=== PATIENT | male | born 1995 | race Caucasian/White ===

== ENCOUNTER 2021-12-18 18:45 | Inpatient (IN) | payer MEDICARE, SELFPAY ==
[2021-12-18 19:02] VITALS: BP 139/93; PULSE 97; RESP 18; TEMP 37.6; O2SAT 99; BMI 20.9
[2021-12-18 19:24] LABS: Appearance Urine CLEAR; Color Urine YELLOW; Glucose Urine UA NEG (NEG); Leukocyte Esterase Urine TRACE (NEG); Nitrite Urine NEG (NEG); UACC Culture Trigger YES; Urine Blood NEG (NEG); Urine Ketones NEG (NEG); Urine Protein NEG (NEG-TRACE)
[2021-12-18 19:38] LABS: Amphetamine Screen Urine POSITIVE (Not Detect); Bacteria Urine TRACE /LPF; Barbiturates, Urine Not Detected (Not Detect); Benzodiazepines Screen Urine Not Detected (Not Detect); Cannabinoid Screen Urine POSITIVE (Not Detect); Cocaine Screen Urine Not Detected (Not Detect); Fentanyl, urine Not Detected (Not Detect); Opiate Screen Urine Not Detected (Not Detect); Phencyclidine Screen Urine Not Detected (Not Detect); RBC Urine 0-2 /HPF (0); WBC Urine 0-2 /HPF (0-4)
[2021-12-18 19:39] LABS: COVID-19 Test Negative (Negative); IDNOW Serial# 55D5AD1C
[2021-12-18 19:41] LABS: MANUAL DIFF FLAG NO
[2021-12-18 19:42] LABS: Basophils Percent Auto 0.2 % (0-2); Eosinophils Percent Auto 0.2 % (0-4); Hematocrit 46.2 % (42.0-52.0); Hemoglobin 14.8 g/dl (14.0-18.0); Imm Gran Abs Auto 0.03 X10*3/uL (0.00-0.03); Imm Gran Pct Auto 0.3 % (0.0-0.4); Lymphocytes Absolute Auto 1.4 X10*3/uL (1.2-4.9); Lymphocytes Percent Auto 12.8 % (20-40); Mean Corpuscular Hemoglobin 28.7 pg (27.0-33.0); Mean Corpuscular Volume 89.5 fL (80.0-98.0); Mean Platelet Volume 9.1 fL (9.4-12.4); Monocytes Percent Auto 9.3 % (2-11); Neutrophils Absolute Auto 8.7 x10*3/uL (2.0-8.3); Neutrophils Percent Auto 77.2 % (45-73); Platelet Count 256 X10*3/uL (160-400); Red Blood Count 5.16 X10*6/uL (4.60-5.80); Red Cell Distribution Width 12.8 % (11.0-16.0); White Blood Count 11.2 X10*3/uL (4.8-10.8)
[2021-12-18 19:57] LABS: Ethanol < 10 mg/dL
[2021-12-18 20:02] LABS: Alanine Aminotransferase 14 U/L (0-40); Albumin Level 4.4 g/dL (3.5-5.0); Alkaline Phosphatase 51 U/L (39-117); Anion Gap 16 (12-20); Aspartate Amino Transferase 24 U/L (5-37); Bilirubin Total 0.4 mg/dL (0.0-1.0); Blood Urea Nitrogen 12 mg/dL (9-16); Calcium 10.6 mg/dL (8.4-10.2); Carbon Dioxide 29 mmol/L (22-29); Chloride 99 mmol/L (96-108); Creatinine Clr Calc Pharmacy 92.8; Estimated Glomerular Filt Rate > 60; Glucose Random 113 mg/dL (60-115); Potassium 4.8 mmol/L (3.3-5.1); Sodium 139 mmol/L (135-145); Total Protein 7.8 g/dL (6.5-8.0)
--- NOTE | 2021-12-18 20:41 | PHA.MEDREC ---
Addendum entered by Dave Johnson ammon 12/19/21 14:50: Patient has medication list provided by CHRIS Menon for [facility] [id number] Resume. Patient is on DR ROBERT AT BEDTIME, AND ER DEPAKOTE DAILY IN THE AM. PATIENT TAKES RISPERIDONE BID Original Note: Pharmacy Consult ? Medication Reconciliation Pharmacy has not completed the medication reconciliation. Patient has no external pharmacy fill history or pharmacy listed. I spoke with the patient down in the psych ed who was manic and he stated that he takes adderall and klonopin. I asked what pharmacy he fills [facility] and [facility] I checked the patients [facility] or [facility] and he has no fill history for any controlled substances. The patient was not able to tell me the doses or directions on either medication. At this time I put the med rec as unobtainable.
[2021-12-18] MEDS: clonazePAM 0.5 MG TABLET PO (20:51)
[2021-12-18] MEDS: OLANZapine 5 MG TABLET PO (22:26)
--- NOTE | 2021-12-19 02:14 | ED.PSYCH ---
HPI - Psych General Chief Complaint: Psychiatric Symptoms Stated Complaint: mental break Time Seen by Provider: 12/18/21 18:52 Source: patient Mode of arrival: EMS Limitations: other (Patient appears to be manic) History of Present Illness HPI Narrative: This is a 26-year-old male medical history of bipolar disorder, schizophrenia presenting to the emergency department appearing to be manic. Patient tells me he has not been taking his medications for the past 48 hours. He tells me that he is forgetting to take it. He is not answering questions appropriately, he is inappropriately laughing or screaming out for help. He is to screaming help me ?. No evidence signs of trauma. Denies SI and HI. Denies medical complaints at this time. He is also screaming ?my medicine ?. Relieving factors: none Exacerbating factors: none Associated psychiatric symptoms: none Associated symptoms: denies other symptoms Treatments prior to arrival: none Related Data Home Medications Medication Instructions Recorded Confirmed Unobtainable 12/18/21 12/18/21 Allergies Allergy/AdvReac Type Severity Reaction Status Date / Time No Known Allergies Allergy Verified 12/18/21 19:33 Review of Systems Review of Systems: Yes Unobtainable due to mental status PMFSH Past Medical History Attestation statement: The following information was validated with the patient. Source: old records reviewed and nursing notes reviewed Social History Social History Advance Directives: No Advance Directives Information Provided: No Physical Exam Vital Signs: Vital Signs: Last Vital Signs Temp 99.7 F 12/18/21 19:02 Pulse 97 12/18/21 19:02 Resp 18 12/18/21 19:02 BP 139/93 H 12/18/21 19:02 Pulse Ox 99 12/18/21 19:02 BMI result Body Mass Index 20.9 Vital signs stable Appearance: Alert.? Oriented X3.? No acute distress.? Head: Normocephalic, atraumatic, no step-offs or deformities Eyes: Pupils equal, round and reactive to light.? ENT: Pharynx normal.? Neck: Normal inspection.? Neck supple.? CVS: Normal heart rate and rhythm.? Pulses normal.? Respiratory: No respiratory distress.? Breath sounds normal.? Abdomen: Soft and nontender.? Skin: Skin warm and dry.? Normal skin color.? Normal skin turgor.? Extremities: No lower extremity edema.? No calf ttp. 5/5 strength to bilateral upper and lower extremities Back: No midline tenderness, no C-spine tenderness, full range of motion, no CVA tenderness bilaterally Neuro: Oriented X 3.? No motor deficit.? No sensory deficit. CN 2-12 intact Course Reevaluation(s) Reevaluation #1: Patient noted to have a slight leukocytosis however not complaining of any medical complaints denies recent URI, likely reactive. Chemistry with no acute electrolyte abnormalities requiring intervention. Urine with trace leukocyte esterases however no urinary symptoms. Will not treat for UTI. Urine positive for amphetamines and marijuana. Ethanol negative. COVID negative. At this time patient will be placed in physician observation to allow more time to be evaluated by the behavioral health team. At time observation was started patient common cooperative no acute distress. Time: 02:19 MDM - Psych MDM Narrative Medical decision making narrative: 0000 26 yo m presents with non med compliance. History of bipolar and schizophrenia. Appears to be manic. Poor historian. Physical exam benign. RRR. Lungs clear. Abdomen soft non tender non distended. Plan medical clearance Medical Records Attestation: I reviewed the patient's medical records. Lab Data Attestation: I reviewed the patient's lab results. Result diagrams: 12/18/21 19:35 12/18/21 19:35 Labs: Lab Results 12/18/21 12/18/21 12/18/21 Range/Units 19:10 19:10 19:11 WBC (4.8-10.8) X10*3/uL RBC (4.60-5.80) X10*6/uL Hgb (14.0-18.0) g/dl Hct (42.0-52.0) % MCV (80.0-98.0) fL MCH (27.0-33.0) pg MCHC (31.0-36.0) g/dl RDW (11.0-16.0) % Plt Count (160-400) X10*3/uL MPV (9.4-12.4) fL Immature Gran % (Auto) (0.0-0.4) % Neut % (Auto) (45-73) % Lymph % (Auto) (20-40) % [place] % (Auto) (2-11) % Eos % (Auto) (0-4) % Baso % (Auto) (0-2) % Lymph # (Auto) (1.2-4.9) X10*3/uL [place] # (Auto) (0.1-1.2) X10*3/uL Eos # (Auto) (0.0-0.4) X10*3/uL Baso # (Auto) (0.0-0.2) X10*3/uL Abs Immat Gran (auto) (0.00-0.03) X10*3/uL Absolute Neuts (auto) (2.0-8.3) x10*3/uL Absolute Nucleated RBC (0.0-0.012) X10*3/uL Nucleated RBC % (auto) (0.0-0.2) /100WBC Sodium (135-145) mmol/L Potassium (3.3-5.1) mmol/L Chloride (96-108) mmol/L Carbon Dioxide (22-29) mmol/L Anion Gap (12-20) BUN (9-16) mg/dL Creatinine (0.5-1.4) mg/dL Estim Creat Clear Calc Estimated GFR Random Glucose (60-115) mg/dL Calcium (8.4-10.2) mg/dL Total Bilirubin (0.0-1.0) mg/dL AST (5-37) U/L ALT (0-40) U/L Alkaline Phosphatase (39-117) U/L Total Protein (6.5-8.0) g/dL Albumin (3.5-5.0) g/dL Urine Color YELLOW Urine Appearance CLEAR Urine pH 6.0 (5.0-8.0) Ur Specific [place] 1.020 (1.005-1.025) Urine Protein NEG (NEG-TRACE) MG/DL Urine Glucose (UA) NEG (NEG) MG/DL Urine Ketones NEG (NEG) MG/DL Urine Blood NEG (NEG) Urine Nitrite NEG (NEG) Ur Leukocyte Esterase TRACE H (NEG) Urine RBC 0-2 (0) /HPF Urine WBC 0-2 (0-4) /HPF Ur Squamous Epith Cells NONE /LPF Urine Bacteria TRACE /LPF Urine Opiates Screen Not Detected (Not Detect) Urine Fentanyl Screen Not Detected (Not Detect) Ur Barbiturates Screen Not Detected (Not Detect) Ur Phencyclidine Scrn Not Detected (Not Detect) Ur Amphetamines Screen POSITIVE H (Not Detect) U Benzodiazepines Scrn Not Detected (Not Detect) Urine Cocaine Screen Not Detected (Not Detect) U Marijuana (THC) Screen POSITIVE H (Not Detect) Ethyl Alcohol mg/dL COVID-19 (MARLON) Negative (Negative) COVID-19 Clin Com See Note 12/18/21 12/18/21 12/18/21 Range/Units 19:35 19:35 19:35 WBC 11.2 H (4.8-10.8) X10*3/uL RBC 5.16 (4.60-5.80) X10*6/uL Hgb 14.8 (14.0-18.0) g/dl Hct 46.2 (42.0-52.0) % MCV 89.5 (80.0-98.0) fL MCH 28.7 (27.0-33.0) pg MCHC 32.0 (31.0-36.0) g/dl RDW 12.8 (11.0-16.0) % Plt Count 256 (160-400) X10*3/uL MPV 9.1 L (9.4-12.4) fL Immature Gran % (Auto) 0.3 (0.0-0.4) % Neut % (Auto) 77.2 H (45-73) % Lymph % (Auto) 12.8 L (20-40) % [place] % (Auto) 9.3 (2-11) % Eos % (Auto) 0.2 (0-4) % Baso % (Auto) 0.2 (0-2) % Lymph # (Auto) 1.4 (1.2-4.9) X10*3/uL [place] # (Auto) 1.0 (0.1-1.2) X10*3/uL Eos # (Auto) 0.0 (0.0-0.4) X10*3/uL Baso # (Auto) 0.0 (0.0-0.2) X10*3/uL Abs Immat Gran (auto) 0.03 (0.00-0.03) X10*3/uL Absolute Neuts (auto) 8.7 H (2.0-8.3) x10*3/uL Absolute Nucleated RBC 0.000 (0.0-0.012) X10*3/uL Nucleated RBC % (auto) 0.0 (0.0-0.2) /100WBC Sodium 139 (135-145) mmol/L Potassium 4.8 (3.3-5.1) mmol/L Chloride 99 (96-108) mmol/L Carbon Dioxide 29 (22-29) mmol/L Anion Gap 16 (12-20) BUN 12 (9-16) mg/dL Creatinine 1.15 (0.5-1.4) mg/dL Estim Creat Clear Calc 92.8 Estimated GFR > 60 Random Glucose 113 (60-115) mg/dL Calcium 10.6 H (8.4-10.2) mg/dL Total Bilirubin 0.4 (0.0-1.0) mg/dL AST 24 (5-37) U/L ALT 14 (0-40) U/L Alkaline Phosphatase 51 (39-117) U/L Total Protein 7.8 (6.5-8.0) g/dL Albumin 4.4 (3.5-5.0) g/dL Urine Color Urine Appearance Urine pH (5.0-8.0) Ur Specific [place] (1.005-1.025) Urine Protein (NEG-TRACE) MG/DL Urine Glucose (UA) (NEG) MG/DL Urine Ketones (NEG) MG/DL Urine Blood (NEG) Urine Nitrite (NEG) Ur Leukocyte Esterase (NEG) Urine RBC (0) /HPF Urine WBC (0-4) /HPF Ur Squamous Epith Cells /LPF Urine Bacteria /LPF Urine Opiates Screen (Not Detect) Urine Fentanyl Screen (Not Detect) Ur Barbiturates Screen (Not Detect) Ur Phencyclidine Scrn (Not Detect) Ur Amphetamines Screen (Not Detect) U Benzodiazepines Scrn (Not Detect) Urine Cocaine Screen (Not Detect) U Marijuana (THC) Screen (Not Detect) Ethyl Alcohol < 10 mg/dL COVID-19 (MARLON) (Negative) COVID-19 Clin Com Critical Care Time Critical Care Time Critical Care Time: No Discharge Plan Discharge Clinical Impression: Bipolar disorder Patient Disposition: Still a Patient Prescriptions: No Action Unobtainable 0RF
[2021-12-19] MEDS: OLANZapine 5 MG TABLET PO ×2 (07:17→19:41)
[2021-12-19] MEDS: cefTRIAXone sodium 500 MG, Lidocaine HCl 1 % MPF 1 ML IM (09:58)
[2021-12-19] MEDS: Nicotine 21 MG PATCH.TD24 TRANSDERMA (11:03)
[2021-12-19] MEDS: LORazepam 1 MG TABLET 2 MG PO ×2 (11:05→19:41)
--- NOTE | 2021-12-19 11:16 | MHC.CARE ---
CARE team met with pt for a brief risk assessment to determine if pt required full crisis assessment. Per POD pt was asking to dc unless given medications requested however these medications (klonopin, adderall) cannot be verified. Pt reported his pharmacy is located in [place] and providers are there also. T/w attempted to meet with pt who was sleeping and did not wake when t/w used his name. POD nurse was able to help wake pt and reported he had recently had an injection of zyprexa. Pt sat up to speak w t/w and presented initially tired and once engaged in questions; pt became irritable and disorganized. Pts voice became louder and he would not make eye contact while yelling I am not an experiment...I want the meds I said work for me or I leave . Pt stated he came here on his own meaning he sought help willingly when ED records indicated he arrived via the police for bizarre behavior in the community. When asked about this pt denied this to be true and with escalating irritation stated that is because god was talking to me. He chose me I cannot help it and I like it . Pt again demanded to be given klonopin and adderall and states he will just leave . Pt would no longer engage with t/w and was escalating. Pt stated he wanted something for anxiety. He began pacing in the room wrapped in a blanket and then waited in lester. T/w spoke w ED provider Vy and it was agreed pt was presenting with significant impairment and needed a full assessment wither by N or CARE team. Added med ordered for anxiety to help pt calm down for further assessment. He reported to her this am that he drank bleach in order to cleanse himself and when offered meds for possible infection he was reluctant to take due to how it impacts his mind and how he liked the burning feeling when urinating. Pt will remain in the ED on a section 12a for crisis assessment. Joan called and smartsheet received by [facility], awaiting a call back from Trudy for ETA for Joan. PA in agreement with plan to have pt remain for further full eval based on his current behavior and presenting sxs.
[2021-12-19 12:21] LABS: CT PCR NOT DETECTED (Not Detect.); NG PCR NOT DETECTED (Not Detect.)
--- NOTE | 2021-12-19 13:45 | PC.NURSE ---
Pt assessed by gil originally from [place]. only support system in [place] is children's mother Viv [phone]
--- NOTE | 2021-12-19 19:10 | PC.NURSE ---
Took report from Nichol to assume care of Pt, Pt in community area talking with other patients, Pt calm/cooperative at this time, safety maintained, this RN continues to monitor.
--- NOTE | 2021-12-19 20:40 | PC.NURSE ---
Pt medicated with bedtime meds, Pt refused Depakote, Pt given Ativan without incident, Pt calm at this time, safety maintained, this RN continues to monitor.
--- NOTE | 2021-12-19 23:20 | PC.NURSE ---
Pt sleeping, chest rise and fall observed, safety maintained, this RN continues to monitor.
--- NOTE | 2021-12-20 00:35 | PC.NURSE ---
Pt asking when he will be able to go home, Pt redirected and Pt went back to his room. Safety maintained, this RN continues to monitor.
--- NOTE | 2021-12-20 04:46 | PC.NURSE ---
Pt sleeping, chest rise and fall observed, safety maintained, this RN continues to monitor.
--- NOTE | 2021-12-20 06:20 | PC.NURSE ---
Pt asking to speak to , hot metal charger spoke with Pt, Pt calm/cooperative, safety maintained, this RN continues to monitor.
--- NOTE | 2021-12-20 06:37 | PC.NURSE ---
Pt watching tv, Pt calm/cooperative at this time, safety maintained, this RN continues to monitor.
--- NOTE | 2021-12-20 07:25 | PC.NURSE ---
pt irritable that he is not able to his Adderall. explained what he has for meds. pt reports If I dont get my adderall Riya go home I don't care
[2021-12-20] MEDS: OLANZapine 5 MG TABLET PO (07:35)
[2021-12-20] MEDS: LORazepam 1 MG TABLET 2 MG PO (07:35)
[2021-12-20] MEDS: Nicotine 21 MG PATCH.TD24 TRANSDERMA (07:42)
[2021-12-20] MEDS: Divalproex Sodium ER 500 MG TAB.ER.24H PO (08:19)
[2021-12-20] MEDS: risperiDONE 2 MG TABLET PO ×2 (08:19→20:45)
[2021-12-20 10:07] VITALS: BP 121/52; PULSE 67; RESP 18; TEMP 36.9; O2SAT 98
[2021-12-20] MEDS: LORazepam 1 MG TABLET PO (10:13)
--- NOTE | 2021-12-20 11:57 | PC.NURSE ---
pt with verbal altercation with staff regarding staff asking him not to place his hands on other pts. security called for presence and pt deescalated. pt continues to ask to speak with dr regarding his care and when he can get out of here . ALYCE Thompson at bedside this morning, spoke with pt about why we cannot continue his Adderall and Klonopin (he was buying them from the street), and explained the section 12 process.
--- NOTE | 2021-12-20 12:51 | PC.NURSE ---
pt holding up hand written signs to the camera and stated its for the camera . unclear what sign stated.
--- NOTE | 2021-12-20 13:08 | PC.NURSE ---
pt forgetful, continues to perseverate about the same topics and have to be reminded of conversations already had. each time pt irritable and requires verbal deescalation.
--- NOTE | 2021-12-20 14:13 | PC.NURSE ---
pt reports he has a problem with a tooth on his right side and he is supposed to have a dentist appointment tomorrow that he cannot miss it .
--- NOTE | 2021-12-20 14:32 | PC.NURSE ---
pt irritable, again, regarding plan, not recalling earlier conversations. pt wanting to leave. reports he is not going to take any more medications. stated I'm a smart man, I need to run, I know how to get out of here . pt proceeded to tap the door frame with his fist. offered pt PO medication, pt reported all you want to do is push meds . informed pt it is his right to refuse medication if he wants to. pt reported So I don't take meds I can go then . t/w re-informed pt that [facility] will be by to evaluate him later today.
[2021-12-20 15:54] VITALS: BP 133/85; PULSE 97; RESP 19; TEMP 37.7; O2SAT 98
--- NOTE | 2021-12-20 16:08 | PC.NURSE ---
call placed to [facility] to determine when a staff member will be around to assess the pt. informed t/w that someone will be heading out shortly and should be here within the hour.
--- NOTE | 2021-12-20 16:54 | PC.NURSE ---
[facility] at bedside
[2021-12-20] MEDS: Divalproex Sodium 250 MG TABLET.DR 750 MG PO (20:45)
--- NOTE | 2021-12-21 | ECG_ITS ---
Test Reason : mEDICAL CLEARANCE Blood Pressure : / mmHG Vent. Rate : 091 BPM Atrial Rate : 091 BPM P-R Int : 154 ms QRS Dur : 084 ms QT Int : 350 ms P-R-T Axes : 076 082 061 degrees QTc Int : 430 ms Normal sinus rhythm Normal ECG No previous ECGs available Referred By: Catherine Deleon Electronically Signed By:NANY JONES MD
[2021-12-21 04:38] VITALS: BP 116/73; PULSE 80; RESP 16; TEMP 36.6; O2SAT 100
--- NOTE | 2021-12-21 06:33 | PC.NURSE ---
pt wrote a note and is posted in pt chart about the reason he came to for medications [place]. pt looking for adderall 50 mg tid, clonopin hs, tramodol bid. pt notes states he wants to go back into the main ed for his medications.
--- NOTE | 2021-12-21 07:38 | PC.NURSE ---
patient appears to remain asleep at present respirations are even and unlabored patient appears in no distress
[2021-12-21] MEDS: LORazepam 1 MG TABLET 2 MG PO ×4 (07:47→19:04)
[2021-12-21] MEDS: OLANZapine 5 MG TABLET PO ×2 (07:47→12:38)
--- NOTE | 2021-12-21 09:39 | PC.NURSE ---
patient disrespectful to staff once limits set rtegarding him using phone after him telling staff he was getting a phone number, pacing unit calling people whores and talking about staffs mothers. now talking loudly and saying he wants to fuck everybody redirected to room and client declined
--- NOTE | 2021-12-21 09:49 | PC.NURSE ---
client eloped from pod when opportunity arose of staff using door
[2021-12-21] MEDS: OLANZapine ODT 10 MG TAB.RAPDIS 5 MG TRANSLINGU (10:21)
[2021-12-21 10:47] LABS: COVID-19 Test Negative (Negative); IDNOW Serial# 16C4AD1C
[2021-12-21 18:00] VITALS: BP 124/81; BP 129/81; PULSE 90; RESP 18; TEMP 36.6; O2SAT 97
[2021-12-21 18:31] VITALS: BP 116/73; PULSE 80; RESP 16; TEMP 36.6; O2SAT 100
[2021-12-21] MEDS: traZODone HCL 50 MG TABLET PO (19:05)
--- NOTE | 2021-12-21 23:14 | PC.ADMIT ---
Pt admitted to at 16:35. Initially was cooperative with admission process. Pt was allowed to call girlfriend. Following the phone call, he became very angry and agitated. He was initially demanding to be discharged. CV and 3 day notice explained to him. Patient signed 3 day notice and was able to calm down and cooperate with the remainder of the admission. Took meds for sleep and anxiety early and went to bed [ End ]
[2021-12-22 06:00] VITALS: BP 124/76; PULSE 102; RESP 16; TEMP 36.8; O2SAT 99
[2021-12-22] MEDS: risperiDONE 2 MG TABLET PO ×2 (09:03→20:44)
[2021-12-22 09:08] LABS: Estimated Average Glucose 100 mg/dL; Hemoglobin A1C 150.7972 umol/L; Hemoglobin A1c % 5.1 %
[2021-12-22 09:32] LABS: Cholesterol 127 mg/dL; HDL Cholesterol 45 mg/dL; LDL Cholesterol Calculated 72 mg/dl; Triglycerides 52 mg/dL
[2021-12-22 09:50] LABS: Free T4 (Free Thyroxine) 0.91 ng/dL (0.71-1.85); Thyroid Stimulating Hormone 1.15 uIU/mL (0.32-4.0)
[2021-12-22 10:06] LABS: Vitamin B12 1104 pg/mL (200-900)
[2021-12-22] MEDS: traMADoL HCL 50 MG TABLET 25 MG PO ×2 (13:43→20:43)
[2021-12-22] MEDS: Nicotine 21 MG PATCH.TD24 TRANSDERMA (13:44)
--- NOTE | 2021-12-22 15:39 | P.HPPS_ITS ---
HPI Date of Service: 12/22/21 Chief Complaint: schizoaffective discorder, bipolar type Sources of Information: patient interviewed, chart reviewed and crisis/core team assessment reviewed HPI Subjective Notes: Garcia Warning and Conditional Voluntary Healthcare Proxy: No Guardianship: No Medical Problems Affecting Mental Status: No Narrative: Danyel is a 26 y.o. Male who carries a dx of schizoaffective do, bipolar type. He presented to [facility] on 12/19/21 via section 12, had been found wandering in [place]. He appeared manic, screaming ?help me,? and ?my medicine.? He also reported having penile drainage, burning sensation, given doxycycline in ED setting for STD prophylaxis. Pt stated he has been drinking bleach ?to clean his system.? He reported non-adherence to medications x 48 hours, was on depakote and risperdal, says he forgets to take them. He was recently hospitalized a week ago in [place]. Pt reported he was getting Adderall prescribed in [place] and requested a refill. Utox positive for amphetamines and cannabis. [employer] does not show hx of amphetamine scripts. While in the ED setting, pt eloped multiple times and had to be brought back into the emergency department. Per [facility] crisis eval, pt presented as religiously preoccupied.??? I evaluated the pt this evening and upon interview he reports he has ?too much energy, wants to win the world.? Pt said he was drinking bleach but was diluting it in water, putting in 5 drops in a bottle of water, now says ?everything feels clean,? ?now its perfect.? Denies hyposomnia, says his sleep is ?perfect.? Pt is tangential, racing thoughts. He is grandiose, talking about winning basketball games. Endorses AH, hears a ?good voice,? says ?whatever he says to me is perfect,? says the voice is god. Also says he sometimes hears a voice telling him ?you need to speak with ?trump,? ?biden,? ?the controls,? and ?you got something to do.? Denies depression. Says anxiety is ?too much.? Denies SI/SIB. Pt requests klonopin and Adderall, says ?I love adderall.? Says he doesnt like taking depakote because he feels ?too numb.?? Past Psychiatric History: -Hx of multiple psych hospital admissions. He reports hx of IPLOC in [place] and [place] -Pt reports hx of suicide attempt by overdosing on medication, was hospitalized in [place] Medical Evaluation Reviewed: Yes [facility] Social History: -Pt has been visiting and staying with his ex and his daughter (age 7) and lives in [place]. 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 Substance History: -Utox positive for amphetamines, cannabis -Says ?If I can use drugs i use them,? Janette, cocaine, pills. Denies alcohol abuse. Diagnostics Vital Signs (24Hr): Vital Signs - 24 hr 12/21/21 18:00 12/21/21 18:31 12/22/21 06:00 Temperature 98 F 97.9 F 98.2 F Pulse Rate 90 80 102 H Respiratory Rate 18 16 16 Blood Pressure 129/81 116/73 124/76 Pulse Oximetry 97 100 99 BMI result Body Mass Index 20.9 Labs Results: 12/18/21 19:35 12/18/21 19:35 Labs: Laboratory Results - last 48 hr 12/21/21 12/22/21 12/22/21 10:25 07:54 07:54 Estimat Average Glucose 100 Hemoglobin A1c % 5.1 Magnesium 2.0 Triglycerides 52 Cholesterol 127 LDL Cholesterol, Calc 72 HDL Cholesterol 45 Vitamin B12 Folate TSH 1.15 Free T4 0.91 COVID-19 (MARLON) Negative COVID-19 Clin Com See Note 12/22/21 07:54 Estimat Average Glucose Hemoglobin A1c % Magnesium Triglycerides Cholesterol LDL Cholesterol, Calc HDL Cholesterol Vitamin B12 1104 H Folate 13.0 TSH Free T4 COVID-19 (MARLON) COVID-19 Clin Com Meds/Allergies Meds Home Medications Acetaminophen (Acetaminophen 325 Mg Tablet) 650 mg PO Q6H PRN PRN Reason: Headache/Pain Mild Scale (1-3) Last Admin: 12/22/21 16:22 Dose: 650 mg Documented by: Al Hydroxide/Mg Hydroxide (Magnesium Hydrox/Alum Hydrox 30 Ml Oral.Susp) 30 ml PO Q6H PRN PRN Reason: Heartburn/Nausea Divalproex Sodium (Divalproex Sodium 500 Mg Tablet.) 500 mg PO BEDTIME [facility] Last Admin: 12/23/21 20:04 Dose: Not Given Documented by: Doxycycline Hyclate (Doxycycline Hyclate 100 Mg Tablet) 100 mg PO BID [facility] Stop: 12/29/21 08:59 Last Admin: 12/23/21 19:54 Dose: 100 mg Documented by: Hydroxyzine HCl (Hydroxyzine Hcl 25 Mg Tablet) 25 mg PO BEDTIME PRN PRN Reason: Anxiety Last Admin: 12/24/21 00:33 Dose: 25 mg Documented by: Magnesium Hydroxide (Milk Of Magnesia 30 Ml Oral.Susp) 30 ml PO DAILY PRN PRN Reason: Constipation Nicotine (Nicotine 21 Mg Patch.Td24) 21 mg TRANSDERMA DAILY PRN PRN Reason: smoking cessation Last Admin: 12/22/21 13:44 Dose: 21 mg Documented by: Oxcarbazepine (Oxcarbazepine 300 Mg Tablet) 300 mg PO BID [facility] Last Admin: 12/23/21 19:55 Dose: 300 mg Documented by: Quetiapine Fumarate (Quetiapine Fumarate 100 Mg Tablet) 100 mg PO BEDTIME [facility] Last Admin: 12/23/21 19:54 Dose: 100 mg Documented by: Quetiapine Fumarate (Quetiapine Fumarate 50 Mg Tablet) 50 mg PO BID PRN PRN Reason: anxiety, agitation Last Admin: 12/24/21 00:33 Dose: 50 mg Documented by: Risperidone (Risperidone 2 Mg Tablet) 2 mg PO BID [facility] Last Admin: 12/23/21 19:55 Dose: 2 mg Documented by: Tramadol HCl (Tramadol Hcl 50 Mg Tablet) 25 mg PO Q8H PRN PRN Reason: Pain, Mild (Pain Scale 1-3) Last Admin: 12/23/21 18:10 Dose: 25 mg Documented by: Trazodone HCl (Trazodone Hcl 50 Mg Tablet) 50 mg PO BEDTIME PRN PRN Reason: Insomnia Last Admin: 12/23/21 19:55 Dose: 50 mg Documented by: Allergies Allergies Allergy/AdvReac Type Severity Reaction Status Date / Time No Known Allergies Allergy Verified 12/18/21 19:33 Mental Status Exam Mental Status Exam Narrative: A&O. In silver bodysuit, well groomed, normal body habitus. Good eye contact, inattentive. No Tics or Tremors. No abnormal involuntary movements. Activated, cooperative, engaged. Speech is pressured, spontaneous, normal volume and prosody. No prolonged speech latency or dysarthria. Mood is ?perfect,? affect is happy. Denies SI/SIB/HI upon inquiry. Endorses AH. Denies VH. Endorses grandiose delusional thought content. Thoughts are racing. No known cognitive or memory impairment. Insight/ Judgment limited but adequate. Assessment & Plan Assessment & Plan (1) Schizoaffective disorder, bipolar type: Status: Acute Code(s): F25.0 - Schizoaffective disorder, bipolar type Plan Danyel is a 26 y.o. Male who carries a dx of schizoaffective, bipolar type. He presented to [facility] on 12/19/21 via section 12, had been found wandering in [place]. Sx of yariel, i.e. racing thoughts, increased activity level, AH, grandiose delusions, however has been sleeping at night. Pt has been non- adherent with medications, was on depakote and risperdal. Utox positive for amphetamines and cannabis. Plan: Pt requests seroquel for sleep, mood stability, and anxiety. Will continue on risperdal and depakote, will obtain VPA level. Q15 min safety checks, CV Monitor response to medications. Monitor for safety in the milieu. Discharge on stabilization. Patient seen. Chart reviewed. Discussed with team. Obtain collateral contact info?as needed Patient educated on: diagnosis and medication risk/benefits Reason for continued inpatient stay Substantial Risk for: inability to function, rapid decompensation and med/psych decompensation
[2021-12-22] MEDS: LORazepam 1 MG TABLET 2 MG PO (16:22)
[2021-12-22] MEDS: Acetaminophen 325 MG TABLET 650 MG PO (16:22)
[2021-12-22 17:26] VITALS: BP 131/81; PULSE 87; RESP 20; TEMP 36.9; O2SAT 100
[2021-12-22] MEDS: traZODone HCL 50 MG TABLET PO (20:41)
[2021-12-22] MEDS: Divalproex Sodium 250 MG TABLET.DR 750 MG PO (20:41)
[2021-12-22] MEDS: OLANZapine 5 MG TABLET PO (20:41)
[2021-12-23 05:36] VITALS: BP 115/55; PULSE 84; RESP 17; TEMP 36.3; O2SAT 99
[2021-12-23] MEDS: risperiDONE 2 MG TABLET PO ×2 (08:31→19:55)
[2021-12-23] MEDS: traMADoL HCL 50 MG TABLET 25 MG PO ×2 (10:18→18:10)
[2021-12-23] MEDS: QUEtiapine Fumarate 50 MG TABLET PO (12:27)
[2021-12-23] MEDS: QUEtiapine Fumarate 100 MG TABLET PO (19:54)
[2021-12-23] MEDS: OXcarbazepine 300 MG TABLET PO (19:55)
[2021-12-23] MEDS: traZODone HCL 50 MG TABLET PO (19:55)
--- NOTE | 2021-12-23 19:59 | P.PNPSI_ITS ---
Subjective Subjective Date of Service: 12/23/21 Reason For Visit: schizoaffective discorder, bipolar type Interim History: Patient seen and discussed with team. I evaluated the pt this morning and upon interview he reports ?I dont want depakote,? says it ?feels bad to me.? Reports he likes the seroquel for sleep. Risperdal is ?good.? Says he has been ?chilling,? feels ?super good.? Continues to endorse AH, says he has ?telepathy.? Per hotel staff member, pt has been refusing the morning dose of depakote, says he does not like this medication. I spoke with pt?s ex gf/ daughter?s mother (Viv, , pt provided verbal consent), who he has been staying. Says pt has been staying with her for 3 weeks and he has been ?doing okay,? says he had been visiting his daughter, keeping busy ?doing exercise outside.? Says she was surprised to find out he was at the hospital because ?he acted really fine.? Says she is not quite sure if he was taking his medication. She does say he was always doing exercise and was ?very energetic,? ?he has to do something all the time, that?s the issue. In the milieu, patient is safe and appropriate in behavior. Says he feels safe. Medication Compliance: No Side effects from medications: Yes Attending Groups: Intermittent Review of Systems Acute medical concerns: No Medical Review of Systems: unchanged Mental Status Exam Mental Status Exam Narrative: A&O. In silver bodysuit, well groomed, normal body habitus. Good eye contact, inattentive. No Tics or Tremors. No abnormal involuntary movements. Activated, cooperative, engaged. Speech is less pressured, spontaneous, normal volume and prosody. No prolonged speech latency or dysarthria. Mood is ?fine,? affect is happy. Denies SI/SIB/HI upon inquiry. Endorses AH. Denies VH. Endorses grandiose delusional thought content. Thoughts are racing. No known cognitive or memory impairment. Insight/ Judgment limited but adequate. Diagnostics Vital Signs (24Hr): Vital Signs - 24 hr 12/23/21 05:36 Temperature 97.3 F Pulse Rate 84 Respiratory Rate 17 Blood Pressure 115/55 L Pulse Oximetry 99 BMI result Body Mass Index 20.9 Labs Results: 12/18/21 19:35 12/18/21 19:35 Labs: Laboratory Results - last 48 hr 12/22/21 12/22/21 12/22/21 07:54 07:54 07:54 Estimat Average Glucose 100 Hemoglobin A1c % 5.1 Magnesium 2.0 Triglycerides 52 Cholesterol 127 LDL Cholesterol, Calc 72 HDL Cholesterol 45 Vitamin B12 1104 H Folate 13.0 TSH 1.15 Free T4 0.91 Medications Medications Current Medications Acetaminophen (Acetaminophen 325 Mg Tablet) 650 mg PO Q6H PRN PRN Reason: Headache/Pain Mild Scale (1-3) Last Admin: 12/22/21 16:22 Dose: 650 mg Documented by: Al Hydroxide/Mg Hydroxide (Magnesium Hydrox/Alum Hydrox 30 Ml Oral.Susp) 30 ml PO Q6H PRN PRN Reason: Heartburn/Nausea Divalproex Sodium (Divalproex Sodium 500 Mg Tablet.Dr) 500 mg PO BEDTIME [facility] Last Admin: 12/23/21 20:04 Dose: Not Given Documented by: Doxycycline Hyclate (Doxycycline Hyclate 100 Mg Tablet) 100 mg PO BID [facility] Stop: 12/29/21 08:59 Last Admin: 12/23/21 19:54 Dose: 100 mg Documented by: Hydroxyzine HCl (Hydroxyzine Hcl 25 Mg Tablet) 25 mg PO BEDTIME PRN PRN Reason: Anxiety Last Admin: 12/24/21 00:33 Dose: 25 mg Documented by: Magnesium Hydroxide (Milk Of Magnesia 30 Ml Oral.Susp) 30 ml PO DAILY PRN PRN Reason: Constipation Nicotine (Nicotine 21 Mg Patch.Td24) 21 mg TRANSDERMA DAILY PRN PRN Reason: smoking cessation Last Admin: 12/22/21 13:44 Dose: 21 mg Documented by: Oxcarbazepine (Oxcarbazepine 300 Mg Tablet) 300 mg PO BID [facility] Last Admin: 12/23/21 19:55 Dose: 300 mg Documented by: Quetiapine Fumarate (Quetiapine Fumarate 100 Mg Tablet) 100 mg PO BEDTIME [facility] Last Admin: 12/23/21 19:54 Dose: 100 mg Documented by: Quetiapine Fumarate (Quetiapine Fumarate 50 Mg Tablet) 50 mg PO BID PRN PRN Reason: anxiety, agitation Last Admin: 12/24/21 00:33 Dose: 50 mg Documented by: Risperidone (Risperidone 2 Mg Tablet) 2 mg PO BID ADRIANNE Last Admin: 12/23/21 19:55 Dose: 2 mg Documented by: Tramadol HCl (Tramadol Hcl 50 Mg Tablet) 25 mg PO Q8H PRN PRN Reason: Pain, Mild (Pain Scale 1-3) Last Admin: 12/23/21 18:10 Dose: 25 mg Documented by: Trazodone HCl (Trazodone Hcl 50 Mg Tablet) 50 mg PO BEDTIME PRN PRN Reason: Insomnia Last Admin: 12/23/21 19:55 Dose: 50 mg Documented by: Allergies Allergies Allergy/AdvReac Type Severity Reaction Status Date / Time No Known Allergies Allergy Verified 12/18/21 19:33 Assessment & Plan Assessment & Plan (1) Schizoaffective disorder, bipolar type: Status: Acute Code(s): F25.0 - Schizoaffective disorder, bipolar type Plan Danyel is a 26 y.o. Male who carries a dx of schizoaffective, bipolar type. He presented to [facility] ED on 12/19/21 via section 12, had been found wandering in [place]. Sx of yariel, i.e. racing thoughts, increased activity level, AH, grandiose delusions, however has been sleeping at night. Pt has been non- adherent with medications, was on depakote and risperdal. Utox positive for amphetamines and cannabis. Plan: Pt requests seroquel for sleep, mood stability, and anxiety. Will continue on risperdal 2 mg BID and depakote, will obtain VPA level. 12/23: Pt has been refusing AM depakote, asks to discontinue this medication, had been non-adherent with it on admission, does not like blood work. Will trial trileptal 300 mg BID, as this does not require lab work, and decrease PM depakote to 500 mg. Q15 min safety checks, CV Monitor response to medications. Monitor for safety in the milieu. Discharge on stabilization. Patient seen. Chart reviewed. Discussed with team. Obtain collateral contact info?as needed I spent minutes with the patient and/or on the patient floor today, greater than?50% of which was spent counseling/coordinating care. Patient educated on: diagnosis and medication risk/benefits Reason for contiued inpatient stay Substantial Risk for: inability to function, rapid decompensation and med/psych decompensation
[2021-12-24] MEDS: hydrOXYzine HCL 25 MG TABLET PO (00:33)
[2021-12-24] MEDS: QUEtiapine Fumarate 50 MG TABLET PO ×2 (00:33→13:20)
[2021-12-24] MEDS: traMADoL HCL 50 MG TABLET 25 MG PO ×3 (04:46→23:48)
[2021-12-24 06:00] VITALS: BP 118/66; PULSE 69; RESP 16; TEMP 36.8; O2SAT 97
[2021-12-24 07:00] VITALS: BMI 22.1
[2021-12-24] MEDS: OXcarbazepine 300 MG TABLET PO (09:05)
[2021-12-24] MEDS: risperiDONE 2 MG TABLET PO ×2 (09:05→19:56)
[2021-12-24 18:00] VITALS: BP 118/68; PULSE 65; RESP 20; TEMP 36.1; O2SAT 97
[2021-12-24] MEDS: Divalproex Sodium 250 MG TABLET.DR PO (19:54)
[2021-12-24] MEDS: traZODone HCL 50 MG TABLET PO (19:55)
[2021-12-24] MEDS: QUEtiapine Fumarate 100 MG TABLET PO (19:55)
[2021-12-24] MEDS: OXcarbazepine 300 MG TABLET 600 MG PO (19:55)
--- NOTE | 2021-12-24 20:06 | HO.PSYCHPN ---
Subjective Subjective Date of Service: 12/24/21 Reason For Visit: schizoaffective discorder, bipolar type Interim History: Patient seen and discussed with team. Patient evaluated today and upon interview he reports he feels good, feels fine. Says he is sleeping well, I sleep in the day too. Says I love seroquel, says its relaxing. Says he heard good news, his daughter has qualified for disability. Sleep is good. Denies having questions or concerns. Tolerating trileptal, again says he does not want to take depakote. In the milieu, patient is safe and appropriate in behavior. Denies SI/SIB/HI upon inquiry. Denies irritability or assaultive ideation. Says he feels safe. Medication Compliance: Yes Side effects from medications: No Attending Groups: Yes Review of Systems Acute medical concerns: No Medical Review of Systems: unchanged Mental Status Exam Mental Status Exam Narrative: A&O. In silver bodysuit, well groomed, normal body habitus. Good eye contact, inattentive. No Tics or Tremors. No abnormal involuntary movements. Activated, cooperative, engaged. Speech is less pressured, spontaneous, normal volume and prosody. No prolonged speech latency or dysarthria. Mood is ?fine,? affect is happy. Denies SI/SIB/HI upon inquiry. Denies AH, says he hears his own voice. Denies VH. Thoughts are more organized, less grandiose, denies racing thoughts. No known cognitive or memory impairment. Insight/ Judgment limited but adequate. Diagnostics Vital Signs (24Hr): Vital Signs - 24 hr 12/24/21 18:00 12/25/21 06:00 Temperature 97 F 97.4 F Pulse Rate 65 77 Respiratory Rate 20 16 Blood Pressure 118/68 114/66 Pulse Oximetry 97 97 BMI result Body Mass Index 22.1 Labs Results: 12/18/21 19:35 12/18/21 19:35 Medications Medications Current Medications Acetaminophen (Acetaminophen 325 Mg Tablet) 650 mg PO Q6H PRN PRN Reason: Headache/Pain Mild Scale (1-3) Last Admin: 12/25/21 06:44 Dose: 650 mg Documented by: Al Hydroxide/Mg Hydroxide (Magnesium Hydrox/Alum Hydrox 30 Ml Oral.Susp) 30 ml PO Q6H PRN PRN Reason: Heartburn/Nausea Divalproex Sodium (Divalproex Sodium 250 Mg Tablet.Dr) 250 mg PO BEDTIME [facility] Last Admin: 12/24/21 19:54 Dose: 250 mg Documented by: Doxycycline Hyclate (Doxycycline Hyclate 100 Mg Tablet) 100 mg PO BID [facility] Stop: 12/29/21 08:59 Last Admin: 12/25/21 08:49 Dose: 100 mg Documented by: Hydroxyzine HCl (Hydroxyzine Hcl 25 Mg Tablet) 25 mg PO BEDTIME PRN PRN Reason: Anxiety Last Admin: 12/24/21 00:33 Dose: 25 mg Documented by: Magnesium Hydroxide (Milk Of Magnesia 30 Ml Oral.Susp) 30 ml PO DAILY PRN PRN Reason: Constipation Nicotine (Nicotine 21 Mg Patch.Td24) 21 mg TRANSDERMA DAILY PRN PRN Reason: smoking cessation Last Admin: 12/22/21 13:44 Dose: 21 mg Documented by: Oxcarbazepine (Oxcarbazepine 300 Mg Tablet) 600 mg PO BID [facility] Last Admin: 12/25/21 08:49 Dose: 600 mg Documented by: Quetiapine Fumarate (Quetiapine Fumarate 100 Mg Tablet) 100 mg PO BEDTIME [facility] Last Admin: 12/24/21 19:55 Dose: 100 mg Documented by: Quetiapine Fumarate (Quetiapine Fumarate 50 Mg Tablet) 50 mg PO BID PRN PRN Reason: anxiety, agitation Last Admin: 12/25/21 06:47 Dose: 50 mg Documented by: Risperidone (Risperidone 2 Mg Tablet) 2 mg PO BID [facility] Last Admin: 12/25/21 08:49 Dose: 2 mg Documented by: Tramadol HCl (Tramadol Hcl 50 Mg Tablet) 25 mg PO Q8H PRN PRN Reason: Pain, Mild (Pain Scale 1-3) Last Admin: 12/25/21 06:45 Dose: 25 mg Documented by: Trazodone HCl (Trazodone Hcl 50 Mg Tablet) 50 mg PO BEDTIME PRN PRN Reason: Insomnia Last Admin: 12/24/21 19:55 Dose: 50 mg Documented by: Allergies Allergies Allergy/AdvReac Type Severity Reaction Status Date / Time No Known Allergies Allergy Verified 12/18/21 19:33 Assessment & Plan Assessment & Plan (1) Schizoaffective disorder, bipolar type: Status: Acute Code(s): F25.0 - Schizoaffective disorder, bipolar type Plan Danyel is a 26 y.o. Male who carries a dx of schizoaffective, bipolar type. He presented to [facility] on 12/19/21 via section 12, had been found wandering in [place]. Sx of yariel, i.e. racing thoughts, increased activity level, AH, grandiose delusions, however has been sleeping at night. Pt has been non-adherent with medications, was on depakote and risperdal. Utox positive for amphetamines and cannabis. Plan: Pt requests seroquel for sleep, mood stability, and anxiety. Will continue on risperdal 2 mg BID and depakote, will obtain VPA level. 12/23: Pt has been refusing AM depakote, asks to discontinue this medication, had been non-adherent with it on admission, does not like blood work. Will trial trileptal 300 mg BID, as this does not require lab work, and decrease PM depakote to 500 mg. 12/24: Increase trileptal to 600 mg BID and decrease depakote to 250 mg to continue taper. Q15 min safety checks, CV Monitor response to medications. Monitor for safety in the milieu. Discharge on stabilization. Patient seen. Chart reviewed. Discussed with team. Obtain collateral contact info?as needed I spent minutes with the patient and/or on the patient floor today, greater than?50% of which was spent counseling/coordinating care. Patient educated on: medication risk/benefits Reason for contiued inpatient stay Substantial Risk for: med/psych decompensation
[2021-12-25 06:00] VITALS: BP 114/66; PULSE 77; RESP 16; TEMP 36.3; O2SAT 97
[2021-12-25] MEDS: Acetaminophen 325 MG TABLET 650 MG PO (06:44)
[2021-12-25] MEDS: traMADoL HCL 50 MG TABLET 25 MG PO (06:45)
[2021-12-25] MEDS: QUEtiapine Fumarate 50 MG TABLET PO (06:47)
[2021-12-25] MEDS: risperiDONE 2 MG TABLET PO (08:49)
[2021-12-25] MEDS: OXcarbazepine 300 MG TABLET 600 MG PO (08:49)
--- NOTE | 2021-12-25 20:29 | P.DS_ITS ---
DS: Providers Provider Date of Service: 12/25/21 Date of admission: 12/21/21 16:57 Date of discharge: 12/25/21 Primary care physician: None Physician Admitting clinician: Jordyn Howell Attending physician on admission: Jeromy Hsu Attending physician on discharge: Jeromy Hsu Discharging clinician: Jordyn Howell DS: Diagnosis Discharge Diagnosis (1) Schizoaffective disorder, bipolar type: DS: Medications Discharge Medications Home Medications: Home Medications Medication Instructions Recorded Confirmed risperidone 2 mg tablet (Risperdal) 2 mg PO BID 12/19/21 12/19/21 Previous Rx's Medication Instructions Recorded oxcarbazepine 600 mg tablet 600 mg PO BID #60 tab 12/25/21 (Trileptal) quetiapine 100 mg tablet 100 mg PO BEDTIME #30 tab 12/25/21 risperidone 2 mg tablet 2 mg PO BID #60 tab 12/25/21 Mental Status Exam Mental Status Exam Narrative: A&O. In silver bodysuit, well groomed, normal body habitus. Good eye contact, inattentive. No Tics or Tremors. No abnormal involuntary movements. Activated, cooperative, engaged. Speech is pressured, spontaneous, normal volume and prosody. No prolonged speech latency or dysarthria. Mood is ?perfect,? affect is happy. Denies SI/SIB/HI upon inquiry. Endorses AH. Denies VH. Endorses grandiose delusional thought content. Thoughts are racing. No known cognitive or memory impairment. Insight/ Judgment limited but adequate. Data Data Completed and Pending Completed studies during hospitalization [Text1]: 12/19/21 12/21/21 12/22/21 09:40 10:25 07:54 Estimat Average Glucose 100 Hemoglobin A1c % 5.1 Magnesium Triglycerides Cholesterol LDL Cholesterol, Calc HDL Cholesterol Vitamin B12 Folate TSH Free T4 Chlam trachomat DNA PCR NOT DETECTED COVID-19 ([facility]) Negative COVID-19 Clin Com See Note N.gonorrhoeae DNA (PCR) NOT DETECTED 12/22/21 12/22/21 07:54 07:54 Estimat Average Glucose Hemoglobin A1c % Magnesium 2.0 Triglycerides 52 Cholesterol 127 LDL Cholesterol, Calc 72 HDL Cholesterol 45 Vitamin B12 1104 H Folate 13.0 TSH 1.15 Free T4 0.91 Chlam trachomat DNA PCR COVID-19 ([facility]) COVID-19 Clin Com N.gonorrhoeae DNA (PCR) 12/18/21 19:10 Urine clean catch - Urine valera top Urine Culture - Final No growth. DS: Summary Hospital Course Hospital Course: Danyel is a 26 y.o. Male who carries a dx of schizoaffective do, bipolar type. He presented to [facility] ED on 12/19/21 via section 12, had been found wandering in [place]. He appeared manic in the ED, screaming ?help me,? and ?my medicine.? Pt stated he has been drinking bleach ?to clean his system.? He reported non- adherence to medications x 48 hours, was on depakote and risperdal, he forgets to take them. He was recently hospitalized a week ago in [place]. Pt reported he was getting Adderall prescribed in [place] and requested a refill. Utox positive for amphetamines and cannabis. 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 While in the ED setting, pt eloped multiple times and had to be brought back into the emergency department.? Over the course of hospitalization, pt was accepting of re-starting risperdal but he did not want to re-start depakote due to the lab work requirement. He was started on trileptal 600 mg twice a day and seroquel 100 mg for sleep. His sleep improved. Pt appeared more regulated due to med adherence. He has a history of multiple psych hospital admissions in [place] and [place] for manic symptoms. He has a hx of one suicide attempt by overdosing on medication, was hospitalized in [place]. Pt was recently staying with his daughter?s mother and she is agreeable to patient discharging to her house and pt likewise considers this safe and stable housing. Discussed the importance of med adherence and patient was able to maintain stable and appropriate behavior throughout the admission. Time spent discussing smoking cessation with patient: 3 to 10 minutes Status at Discharge Functional status at discharge: independent ambulation Overall status at discharge: patient is progressing back to baseline Time Spent with Patient Time attestation: Total time spent providing and/or coordinating discharge services: Time spent: Less than 30 minutes Discharge Plan Discharge Patient Disposition: Home, Self-Care Discharge Diagnosis: Schizoaffective DO, bipolar type Referrals: [facility] [Outside] - 1 Week Vandana Elmore MD [Physician] - 1 Week Discharge Medications: New quetiapine 100 mg Tablet 100 mg PO BEDTIME Qty: 30 1RF risperidone 2 mg Tablet 2 mg PO BID Qty: 60 1RF oxcarbazepine [Trileptal] 600 mg tablet 600 mg PO BID Qty: 60 0RF Continued risperidone [Risperdal] 2 mg Tablet 2 mg PO BID 0RF Discontinued divalproex [Depakote] 250 mg Tablet,Delayed Release (Dr/Ec) 750 mg PO BEDTIME 0RF divalproex 500 mg Tablet Extended Release 24 Hr 500 mg PO DAILY 0RF Discharge Orders: Discharge Order (Routine); Ordered 12/25/21 Ordered By: Jordyn Howell Activity on Discharge: As tolerated Stand Alone Forms: Patient Portal Discharge page, Community Support Care Plan Goals: Continue medications as prescribed, follow up with outpatient referrals and PCP. Health Concerns: Med non-adherence, smoking cessation Plan of Treatment: Continue psychotropic medications as prescribed. Assessment: Patient has been adherent on medication and was started on a new mood stabilizer. He denies suicidal ideation, self harm urges, or homicidal/ assaultive ideation. He denies mood or behavioral concerns. No imminent safety concerns. Discharge Date/Time: 12/25/21 13:48
== END 2021-12-25 13:48 | disposition home or self-care (01) | DRG 885 ==
LOC: HO.ED 12-21 14:20 → HO.PM5 12-21 17:03
PROVIDERS: Clinical Nurse Specialist Psychiatric/Mental Health, Adult; Physician Assistant; Physician Assistant Medical; Admitting Provider Psychiatry & Neurology Psychiatry; Emergency Provider Emergency Medicine; Visit Provider Psychiatry & Neurology Psychiatry
DX: F25.0 Schizoaffective disorder, bipolar type (principal); Z91.14 Patient's other noncompliance with medication regimen; Z20.822 Contact with and (suspected) exposure to COVID-19; F17.210 Nicotine dependence, cigarettes, uncomplicated; Z71.6 Tobacco abuse counseling; Z79.899 Other long term (current) drug therapy
CPT/HCPCS: 36415; 80053; 80061; 80307; 81001; 82077; 82607; 82746; 83036; 83735; 84439; 84443; 85025; 87086; 87491; 87591; 87635; 93005; 96372; 99285; J0696

== ENCOUNTER 2021-12-30 08:52 | Emergency (ER) | payer MEDICARE, SELFPAY ==
--- NOTE | 2021-12-30 09:09 | ED_ITS ---
HPI - Psych General Stated Complaint: PSYCH CRISIS,S/P VERBAL ALTERCATION Time Seen by Provider: 12/30/21 09:08 Source: patient and medical reception specialist Mode of arrival: EMS Limitations: no limitations History of Present Illness MD complaint: other (domestic dispute) Onset (ago): minute(s) (just REAL ESTATE CONSULTANT) Duration: resolved prior to arrival History of same: Yes Relieving factors: none Exacerbating factors: other (issue with spouse) Context: other (issue with baby mama ) Associated psychiatric symptoms: none Associated symptoms: other (meds withheld by spouse) Treatments prior to arrival: none Related Data Home Medications Medication Instructions Recorded Confirmed risperidone 2 mg tablet (Risperdal) 2 mg PO BID 12/19/21 12/19/21 Previous Rx's Medication Instructions Recorded oxcarbazepine 600 mg tablet 600 mg PO BID #60 tab 12/25/21 (Trileptal) quetiapine 100 mg tablet 100 mg PO BEDTIME #30 tab 12/25/21 risperidone 2 mg tablet 2 mg PO BID #60 tab 12/25/21 Allergies Allergy/AdvReac Type Severity Reaction Status Date / Time No Known Allergies Allergy Verified 12/18/21 19:33 Review of Systems Review of Systems: Constitutional : No Fever, No Chills ENT/Mouth : No Ear Pain, No Nasal Congestion, No sore throat Eyes: No Eye Pain, No Swelling, No Redness Cardiovascular : No Chest Pain, No SOB Respiratory : No Cough, No Sputum, No Dyspnea Gastrointestinal : No Nausea, No Vomiting, No Diarrhea, No Hematochezia, No Melena Genitourinary : No Dysuria, No Urinary Frequency, No Hematuria Musculoskeletal : No Myalgias Skin : No Skin Lesions, No rash Neuro : No Weakness, No Numbness, No Paresthesias, No Dizziness, No Headache Psych : no Anxiety, no Depression, no SI/HI PMFSH Past Medical History Attestation statement: The following information was validated with the patient. Medical History (Updated 12/30/21 @ 09:14 by Madelyn Solis DO) Schizoaffective disorder, bipolar type Social History Social History Household Members: Significant Other Housing: Apartment Do you presently have visiting nurse or other home services: No Unable to assess alcohol history related to: Unknown Patient Tobacco Use Status: Current everyday Tobacco user e-Cigarette/Vaping Use: Currently Using Second Hand Smoke Exposure: Yes Substance Use Type: Hallucinogens, Marijuana and Prescription Drugs Advance Directives: No service: No Sexual orientation: Straight/Heterosexual Physical Exam Vital Signs: Appearance: Alert. Oriented X3. No acute distress. calm and cooperative Eyes: Pupils equal, round and reactive to light. ENT: Pharynx normal. Neck: Normal inspection. Neck supple. CVS: Normal heart rate and rhythm. Pulses normal. Respiratory: No respiratory distress. Breath sounds normal. Abdomen: Soft and nontender. Skin: Skin warm and dry. Normal skin color. Normal skin turgor. Extremities: No lower extremity edema. No calf ttp Neuro: Oriented X 3. No motor deficit. No sensory deficit. no SI/HI MDM - Psych MDM Narrative Medical decision making narrative: 26 yo male with bipolar and schizophrenia visiting his baby's mother right now he is due to go back to [place] tomorrow they had a verbal argument this AM and police were called - she withheld his medications and when police showed up he became nervous and told them he needed the medications so he was brought here - no SI/HI. I spoke to the girlfriend on facetime she is not concerned for his or her safety. She has the medications - he is going to stay with his family tonight. Patient is not on section at this time and given he is calm and cooperative no SI I do not think he warrants crisis evaluation Discharge Plan Discharge Clinical Impression: Domestic problems Patient Disposition: Home, Self-Care Instructions: Normal Exam (ED) Additional Instructions: return to ED for any worsening symptoms or concerns Prescriptions: No Action risperidone [Risperdal] 2 mg Tablet 2 mg PO BID 0RF quetiapine 100 mg Tablet 100 mg PO BEDTIME Qty: 30 1RF risperidone 2 mg Tablet 2 mg PO BID Qty: 60 1RF oxcarbazepine [Trileptal] 600 mg tablet 600 mg PO BID Qty: 60 0RF
[2021-12-30 09:21] VITALS: BP 138/96; PULSE 94; O2SAT 99; BMI 22.3
== END 2021-12-30 09:26 | disposition home or self-care (01) ==
LOC: HO.ED 09:19
PROVIDERS: Emergency Provider Emergency Medicine
DX: Z03.89 Encounter for observation for other suspected diseases and conditions ruled out (principal); F25.0 Schizoaffective disorder, bipolar type; Z63.0 Problems in relationship with spouse or partner; Z79.899 Other long term (current) drug therapy
CPT/HCPCS: 99282; 99284